=== PATIENT | female | born 1985 | race Caucasian/White ===

== ENCOUNTER 2016-10-22 08:10 | Emergency (ER) | payer MEDICAID ==
[2016-10-22 08:49] LABS: BASOPHIL % 0.4 % (0-2); PLATELET COUNT 378 x10^3mcL (130-400); RED CELL DISTRIBUTION WIDTH 13.6 % (11.5-14.5)
[2016-10-22 09:03] LABS: CALCIUM 9.2 mg/dL (8.5-10.1); CARBON DIOXIDE 20.7 mmol/L (21-32); CHLORIDE SERUM 105 mmol/L (98-107); CREATININE SERUM 0.6 mg/dL (0.6-1.0); GFR1 > 60 mL/min; GLUCOSE SERUM 123 mg/dL (74-106); POTASSIUM SERUM 3.9 mmol/L (3.5-5.1); SODIUM SERUM 140 mmol/L (136-145)
[2016-10-22 09:16] LABS: ALBUMIN 4.1 g/dL (3.4-5.0); ALKALINE PHOSPHATASE 67 U/L (46-116); ALT/SGPT 22 U/L (14-59); AST/SGOT 15 U/L (15-37); BILIRUBIN TOTAL 0.23 mg/dL (0.20-1.00); T4(THYROXINE) 8.9 ug/dL (4.7-13.3); TOTAL PROTEIN, SERUM 8.5 g/dL (6.4-8.2)
[2016-10-22 09:49] VITALS: BP 126/83
== END 2016-10-22 09:49 | disposition home or self-care (01) ==
LOC: ED 08:10
PROVIDERS: Emergency Medicine
DX: R00.2 Palpitations (principal); F43.9 Reaction to severe stress, unspecified; F41.9 Anxiety disorder, unspecified
CPT/HCPCS: 36415; 83880; Q0092

== ENCOUNTER 2017-11-27 01:20 | Emergency (ER) | payer SELFPAY ==
[~2017-11-27] VITALS: Ht 160 cm; Wt 79.8 kg
[2017-11-27 04:32] LABS: microscopic required? YES; urine erythrocyte NEGATIVE (NEGATIVE)
[2017-11-27 06:55] VITALS: BP 121/79
== END 2017-11-27 06:55 | disposition home or self-care (01) ==
LOC: ED 01:20
PROVIDERS: Emergency Medicine
DX: N83.202 Unspecified ovarian cyst, left side (principal)
CPT/HCPCS: J1885